=== PATIENT | male | born 2005 | race Caucasian/White ===

== ENCOUNTER 2024-12-10 13:22 | Outpatient (CLI) | payer BC, SELFPAY | END 2024-12-10 13:23 | disposition home or self-care (01) | LOC: NFLDREF 12-11 23:23 | PROVIDERS: PCP Registered Nurse; Referring Provider Registered Nurse; Visit Provider Nurse Practitioner Family | DX: R03.0 Elevated blood-pressure reading, without diagnosis of hypertension (principal); R53.83 Other fatigue; Z13.220 Encounter for screening for lipoid disorders | CPT/HCPCS: 80053; 80061 ==